=== PATIENT | female | born 1955 | race African-American/Black ===

== ENCOUNTER 2017-06-30 16:00 | Inpatient (IN) | payer MEDICARE, MEDICAID ==
[~2017-06-30] VITALS: Ht 157.5 cm; Wt 49.4 kg
[~2017-06-30 16:00] MED LIST: AMLO5TAB88 PO; ASPI-1159 PO; FISH PO; METO50TA5 PO; MULT-1146 PO; [UNRECOGNIZED DRUG - OTHER]
[2017-06-30] MEDS ORDERED: ONDANSETRON HCL 4MG/2ML VIAL IV PRN (17:00)
[2017-06-30] MEDS: DOCUSATE SODIUM 100MG CAPSULE PO SCH (17:00)
[2017-06-30] MEDS ORDERED: IPRATROPIUM/ALBUTEROL 0.5-3(2.5)MG/3ML NEB HHN PRN (17:00)
[2017-06-30 17:12] VITALS: BP 183/83
[2017-06-30 18:06] VITALS: BP 183/83
[2017-06-30 20:00] VITALS: BP 179/92
[2017-06-30] MEDS: POLYETHYLENE GLYCOL 3350 (17GM) 1 DOSE PACK PO SCH (21:18)
[2017-07-01] MEDS: HYDRALAZINE HCL 10MG TABLET PO PRN (00:27)
[2017-07-01] MEDS: DEXT 5%/0.45% NACL 1000ML 1,000 ML IV SCH ×2 (05:39→09:46)
[2017-07-01 08:00] VITALS: BP 119/50
[2017-07-01] MEDS ORDERED: ACETAMINOPHEN 650MG/20.3ML UDC PO PRN (08:00)
[2017-07-01] MEDS: PANTOPRAZOLE SODIUM 40 MG/VIAL IV SCH (09:45)
[2017-07-01] MEDS: CLOPIDOGREL 75MG TABLET PO SCH (09:45)
[2017-07-01] MEDS: DOCUSATE SODIUM 100MG CAPSULE PO SCH ×2 (09:45→16:52)
[2017-07-01] MEDS ORDERED: ASPIRIN 81MG EC TABLET PO SCH (13:15)
[2017-07-01 13:24] LABS: BASOPHILS % 0.4 % (0.0-2.0); EOSINOPHILS % 0.9 % (0.0-5.0); HEMATOCRIT. 37.2 % (36.0-48.0); LYMPHOCYTES % 26.3 % (20.0-50.0); MEAN CORPUSCULAR HEMOGLOBIN 30.3 pg (28.0-32.0); MEAN PLATELET VOLUME 7.5 fl (7.4-10.4); MONOCYTES % 7.4 % (2.0-8.0); PLATELET 283 x1000/uL (130-400); RED BLOOD CELL COUNT 4.28 mill/uL (4.2-5.4)
[2017-07-01 13:48] LABS: CARBON DIOXIDE 24 mEq/L (21-32); CHLORIDE 111 mEq/L (98-107); PREALBUMIN 26.5 mg/dL (20.0-40.0)
[2017-07-01] MEDS: ASPIRIN 81MG TABLET PO SCH (15:37)
[2017-07-01 20:00] VITALS: BP 156/71
[2017-07-01] MEDS: POLYETHYLENE GLYCOL 3350 (17GM) 1 DOSE PACK PO SCH (21:00)
[2017-07-01] MEDS: ATORVASTATIN CALCIUM 10MG TABLET PO SCH (21:35)
[2017-07-01] MEDS: METOPROLOL TARTRATE 25MG TABLET PO SCH (21:36)
[2017-07-01] MEDS: AMLODIPINE 5MG TABLET PO SCH (21:36)
[2017-07-02 01:12] LABS: CLARITY URINE CLOUDY (CLEAR); COLOR URINE YELLOW (YELLOW); GLUCOSE URINE NEGATIVE (NEGATIVE); KETONES URINE NEGATIVE (NEGATIVE); LEUKOCYTE ESTERASE URINE 3+ (NEGATIVE); NITRITE URINE NEGATIVE (NEGATIVE); OCCULT BLOOD URINE NEGATIVE (NEGATIVE); PH URINE 6.5 (4.5-8.0); PROTEIN URINE NEGATIVE (NEGATIVE); SPECIFIC GRAVITY URINE 1.014 (1.005-1.030)
[2017-07-02] MEDS: DEXT 5%/0.45% NACL 1000ML 1,000 ML IV SCH (03:49)
[2017-07-02 06:03] LABS: BASOPHILS % 0.2 % (0.0-2.0); EOSINOPHILS % 2.6 % (0.0-5.0); HEMATOCRIT. 34.8 % (36.0-48.0); MEAN CORPUSCULAR HEMOGLOBIN 30.2 pg (28.0-32.0); MEAN CORPUSCULAR VOLUME 87.9 fL (81.0-99.0); MEAN PLATELET VOLUME 7.8 fl (7.4-10.4); MONOCYTES % 8.1 % (2.0-8.0); NEUTROPHILS % 57.1 % (40.0-76.0); PLATELET 249 x1000/uL (130-400); RED BLOOD CELL COUNT 3.96 mill/uL (4.2-5.4)
[2017-07-02 07:12] LABS: CARBON DIOXIDE 25 mEq/L (21-32); CHLORIDE 110 mEq/L (98-107)
[2017-07-02] MEDS ORDERED: POTASSIUM CHLORIDE 20MEQ TABLET SR PO NR (07:45)
[2017-07-02 08:00] VITALS: BP 171/64
[2017-07-02] MEDS: CLOPIDOGREL 75MG TABLET PO SCH (08:10)
[2017-07-02] MEDS: PANTOPRAZOLE SODIUM 40 MG/VIAL IV SCH (08:10)
[2017-07-02] MEDS: DOCUSATE SODIUM 100MG CAPSULE PO SCH ×3 (08:11→17:16)
[2017-07-02] MEDS: METOPROLOL TARTRATE 25MG TABLET PO SCH ×2 (08:11→22:10)
[2017-07-02] MEDS: AMLODIPINE 5MG TABLET PO SCH ×2 (08:11→22:10)
[2017-07-02] MEDS: ASPIRIN 81MG TABLET PO SCH (08:11)
[2017-07-02] MEDS: NITROFURANTOIN 100MG M/M CAPSULE PO SCH ×2 (08:17→22:10)
[2017-07-02] MEDS: LOSARTAN POTASSIUM 25 MG TABLET PO SCH (11:19)
[2017-07-02] MEDS: HYDRALAZINE HCL 10MG TABLET PO PRN (11:27)
[2017-07-02] MEDS: LACTULOSE 20G/30ML UDC PO SCH ×2 (17:16→22:10)
[2017-07-02 20:00] VITALS: BP 154/73
[2017-07-02] MEDS: POLYETHYLENE GLYCOL 3350 (17GM) 1 DOSE PACK PO SCH ×3 (21:00→22:11)
[2017-07-02] MEDS: ATORVASTATIN CALCIUM 10MG TABLET PO SCH (22:10)
[2017-07-03 07:55] VITALS: BP 145/69
[2017-07-03 08:00] LABS: BASOPHILS % 0.2 % (0.0-2.0); EOSINOPHILS % 1.1 % (0.0-5.0); HEMATOCRIT. 36.9 % (36.0-48.0); HEMOGLOBIN. 12.6 g/dL (12.0-16.0); LYMPHOCYTES % 20.6 % (20.0-50.0); MEAN CORPUSCULAR HEMOGLOBIN 29.9 pg (28.0-32.0); MEAN CORPUSCULAR VOLUME 87.9 fL (81.0-99.0); MEAN PLATELET VOLUME 7.6 fl (7.4-10.4); MONOCYTES % 6.2 % (2.0-8.0); NEUTROPHILS % 71.9 % (40.0-76.0); PLATELET 278 x1000/uL (130-400); RED CELL DISTRIBUTION WIDTH 14.4 % (11.6-14.6)
[2017-07-03 08:43] LABS: CARBON DIOXIDE 24 mEq/L (21-32); CHLORIDE 110 mEq/L (98-107); HDL CHOLESTEROL 41 mg/dL (40-59); LDL CHOLESTEROL 87 mg/dL (5-100); PHOSPHORUS 3.1 mg/dL (2.5-4.9); TOTAL IRON BINDING CAPACITY 310 ug/dL (250-450)
[2017-07-03 08:44] LABS: FERRITIN 264 ng/mL (10-291)
[2017-07-03 08:45] LABS: VITAMIN B12 SERUM 1553 pg/mL (211-911)
[2017-07-03 08:58] LABS: FOLIC ACID (FOLATE) SERUM > 20.00 ng/mL (>5.38)
[2017-07-03] MEDS: LACTULOSE 20G/30ML UDC PO SCH (09:00)
[2017-07-03] MEDS: NITROFURANTOIN 100MG M/M CAPSULE PO SCH ×2 (10:24→20:22)
[2017-07-03] MEDS: LOSARTAN POTASSIUM 25 MG TABLET PO SCH (10:24)
[2017-07-03] MEDS: DOCUSATE SODIUM 100MG CAPSULE PO SCH ×4 (10:24→18:10)
[2017-07-03] MEDS: METOPROLOL TARTRATE 25MG TABLET PO SCH ×2 (10:24→20:21)
[2017-07-03] MEDS: FAMOTIDINE 20MG TABLET PO SCH ×2 (10:25→18:10)
[2017-07-03] MEDS: CLOPIDOGREL 75MG TABLET PO SCH (10:25)
[2017-07-03] MEDS: ASPIRIN 81MG TABLET PO SCH (10:25)
[2017-07-03] MEDS: AMLODIPINE 5MG TABLET PO SCH ×2 (10:25→20:21)
[2017-07-03] MEDS: POLYETHYLENE GLYCOL 3350 (17GM) 1 DOSE PACK PO SCH ×2 (20:20→20:23)
[2017-07-03] MEDS: ATORVASTATIN CALCIUM 10MG TABLET PO SCH (20:21)
[2017-07-03 20:51] VITALS: BP 170/79
[2017-07-03 21:40] VITALS: BP 168/79
[2017-07-04 00:10] VITALS: BP 154/73
[2017-07-04 07:02] LABS: BASOPHILS % 0.4 % (0.0-2.0); EOSINOPHILS % 2.2 % (0.0-5.0); HEMATOCRIT. 36.4 % (36.0-48.0); HEMOGLOBIN. 12.5 g/dL (12.0-16.0); LYMPHOCYTES % 29.9 % (20.0-50.0); MEAN CORPUSCULAR HEMOGLOBIN 30.3 pg (28.0-32.0); MEAN CORPUSCULAR VOLUME 88.2 fL (81.0-99.0); MEAN PLATELET VOLUME 7.4 fl (7.4-10.4); MONOCYTES % 6.9 % (2.0-8.0); NEUTROPHILS % 60.6 % (40.0-76.0); PLATELET 266 x1000/uL (130-400); RED BLOOD CELL COUNT 4.12 mill/uL (4.2-5.4); RED CELL DISTRIBUTION WIDTH 14.1 % (11.6-14.6)
[2017-07-04 07:43] VITALS: BP 161/72
[2017-07-04 07:54] LABS: CARBON DIOXIDE 24 mEq/L (21-32); CHLORIDE 111 mEq/L (98-107)
[2017-07-04] MEDS ORDERED: POTASSIUM CHLORIDE 20MEQ TABLET SR PO SCH (09:15)
[2017-07-04] MEDS: AMLODIPINE 5MG TABLET PO SCH ×2 (09:28→20:47)
[2017-07-04] MEDS: NITROFURANTOIN 100MG M/M CAPSULE PO SCH ×2 (09:29→20:44)
[2017-07-04] MEDS: METOPROLOL TARTRATE 25MG TABLET PO SCH ×2 (09:29→20:46)
[2017-07-04] MEDS: FAMOTIDINE 20MG TABLET PO SCH ×2 (09:30→16:38)
[2017-07-04] MEDS: ASPIRIN 81MG TABLET PO SCH (09:30)
[2017-07-04] MEDS: CLOPIDOGREL 75MG TABLET PO SCH (09:30)
[2017-07-04] MEDS: LOSARTAN POTASSIUM 25 MG TABLET PO SCH (09:30)
[2017-07-04] MEDS: DOCUSATE SODIUM 100MG CAPSULE PO SCH ×4 (09:36→16:38)
[2017-07-04] MEDS ORDERED: POTASSIUM CHLORIDE 20MEQ/PACKET PO SCH (09:45)
[2017-07-04 20:00] VITALS: BP 165/82
[2017-07-04] MEDS: ATORVASTATIN CALCIUM 10MG TABLET PO SCH (20:44)
[2017-07-04] MEDS: POLYETHYLENE GLYCOL 3350 (17GM) 1 DOSE PACK PO SCH (20:46)
[2017-07-05 08:00] VITALS: BP 171/76
[2017-07-05] MEDS: NITROFURANTOIN 100MG M/M CAPSULE PO SCH ×2 (08:33→21:01)
[2017-07-05] MEDS: FAMOTIDINE 20MG TABLET PO SCH ×2 (08:34→17:04)
[2017-07-05] MEDS: LOSARTAN POTASSIUM 25 MG TABLET PO SCH (08:34)
[2017-07-05] MEDS: CLOPIDOGREL 75MG TABLET PO SCH (08:34)
[2017-07-05] MEDS: DOCUSATE SODIUM 100MG CAPSULE PO SCH ×4 (08:34→17:04)
[2017-07-05] MEDS: AMLODIPINE 5MG TABLET PO SCH ×2 (08:34→21:02)
[2017-07-05] MEDS: ASPIRIN 81MG TABLET PO SCH (08:34)
[2017-07-05] MEDS: METOPROLOL TARTRATE 25MG TABLET PO SCH ×2 (08:37→21:01)
[2017-07-05 19:00] VITALS: BP 186/89
[2017-07-05] MEDS: ATORVASTATIN CALCIUM 10MG TABLET PO SCH (21:01)
[2017-07-05] MEDS: POLYETHYLENE GLYCOL 3350 (17GM) 1 DOSE PACK PO SCH (21:02)
[2017-07-06 07:34] LABS: CARBON DIOXIDE 26 mEq/L (21-32); CHLORIDE 113 mEq/L (98-107)
[2017-07-06 08:00] VITALS: BP 150/74
[2017-07-06] MEDS: DOCUSATE SODIUM 100MG CAPSULE PO SCH ×3 (09:00→20:39)
[2017-07-06] MEDS: METOPROLOL TARTRATE 25MG TABLET PO SCH ×2 (09:00→20:20)
[2017-07-06] MEDS: ASPIRIN 81MG TABLET PO SCH (09:51)
[2017-07-06] MEDS: FAMOTIDINE 20MG TABLET PO SCH ×2 (09:51→16:23)
[2017-07-06] MEDS: CLOPIDOGREL 75MG TABLET PO SCH (09:51)
[2017-07-06] MEDS: NITROFURANTOIN 100MG M/M CAPSULE PO SCH ×2 (09:51→20:40)
[2017-07-06] MEDS: LOSARTAN POTASSIUM 25 MG TABLET PO SCH (09:52)
[2017-07-06] MEDS: AMLODIPINE 5MG TABLET PO SCH ×2 (09:52→20:40)
[2017-07-06] MEDS ORDERED: LOSARTAN POTASSIUM 25 MG TABLET PO SCH (13:30)
[2017-07-06] MEDS: BISACODYL 10MG SUPP PR PRN (16:23)
[2017-07-06] MEDS: CLONIDINE 0.1MG TABLET PO SCH ×2 (16:29→22:09)
[2017-07-06 20:00] VITALS: BP 101/61
[2017-07-06] MEDS: ATORVASTATIN CALCIUM 10MG TABLET PO SCH (20:19)
[2017-07-06] MEDS: POLYETHYLENE GLYCOL 3350 (17GM) 1 DOSE PACK PO SCH (20:20)
[2017-07-06] MEDS ORDERED: LOSARTAN POTASSIUM 50 MG TABLET PO SCH (21:00)
[2017-07-07] MEDS: CLONIDINE 0.1MG TABLET PO SCH ×3 (05:16→21:32)
[2017-07-07 07:56] VITALS: BP 120/50
[2017-07-07] MEDS: NITROFURANTOIN 100MG M/M CAPSULE PO SCH ×2 (09:28→21:27)
[2017-07-07] MEDS: AMLODIPINE 5MG TABLET PO SCH ×2 (09:28→21:28)
[2017-07-07] MEDS: FAMOTIDINE 20MG TABLET PO SCH ×2 (09:28→18:03)
[2017-07-07] MEDS: METOPROLOL TARTRATE 25MG TABLET PO SCH ×2 (09:28→21:28)
[2017-07-07] MEDS: DOCUSATE SODIUM 100MG CAPSULE PO SCH ×2 (09:29→21:27)
[2017-07-07] MEDS: ASPIRIN 81MG TABLET PO SCH (09:29)
[2017-07-07] MEDS: CLOPIDOGREL 75MG TABLET PO SCH (09:29)
[2017-07-07] MEDS ORDERED: SODIUM CHLORIDE 0.45% 1,000 ML IV ONE (09:45)
[2017-07-07 13:00] VITALS: BP 111/65
[2017-07-07 13:07] LABS: 25-HYDROXY VITAMIN D3 51 ng/mL (.)
[2017-07-07 20:00] VITALS: BP 148/53
[2017-07-07] MEDS: ATORVASTATIN CALCIUM 10MG TABLET PO SCH (21:27)
[2017-07-07] MEDS: POLYETHYLENE GLYCOL 3350 (17GM) 1 DOSE PACK PO SCH (21:27)
[2017-07-08] MEDS: CLONIDINE 0.1MG TABLET PO SCH ×3 (05:27→22:00)
[2017-07-08 08:00] VITALS: BP 115/54
[2017-07-08 08:08] LABS: BASOPHILS % 0.2 % (0.0-2.0); EOSINOPHILS % 4.2 % (0.0-5.0); HEMATOCRIT. 30.3 % (36.0-48.0); HEMOGLOBIN. 10.5 g/dL (12.0-16.0); LYMPHOCYTES % 20.1 % (20.0-50.0); MEAN CORPUSCULAR HEMOGLOBIN 30.6 pg (28.0-32.0); MEAN CORPUSCULAR VOLUME 87.9 fL (81.0-99.0); MEAN PLATELET VOLUME 7.9 fl (7.4-10.4); MONOCYTES % 8.5 % (2.0-8.0); PLATELET 208 x1000/uL (130-400); RED BLOOD CELL COUNT 3.44 mill/uL (4.2-5.4); RED CELL DISTRIBUTION WIDTH 14.6 % (11.6-14.6)
[2017-07-08] MEDS: AMLODIPINE 5MG TABLET PO SCH ×2 (09:00→20:56)
[2017-07-08] MEDS: METOPROLOL TARTRATE 25MG TABLET PO SCH ×2 (09:00→20:56)
[2017-07-08] MEDS: ASPIRIN 81MG TABLET PO SCH (10:38)
[2017-07-08] MEDS: DOCUSATE SODIUM 100MG CAPSULE PO SCH ×2 (10:38→20:55)
[2017-07-08] MEDS: CLOPIDOGREL 75MG TABLET PO SCH (10:38)
[2017-07-08] MEDS: NITROFURANTOIN 100MG M/M CAPSULE PO SCH ×2 (10:38→20:55)
[2017-07-08] MEDS: FAMOTIDINE 20MG TABLET PO SCH ×2 (10:38→17:56)
[2017-07-08 12:57] VITALS: BP 152/81
[2017-07-08 20:00] VITALS: BP 107/58
[2017-07-08] MEDS: ATORVASTATIN CALCIUM 10MG TABLET PO SCH (20:55)
[2017-07-08] MEDS: POLYETHYLENE GLYCOL 3350 (17GM) 1 DOSE PACK PO SCH (20:55)
[2017-07-09] MEDS: CLONIDINE 0.1MG TABLET PO SCH ×3 (05:48→22:00)
[2017-07-09 05:54] LABS: BASOPHILS % 0.4 % (0.0-2.0); EOSINOPHILS % 5.2 % (0.0-5.0); HEMOGLOBIN. 10.2 g/dL (12.0-16.0); LYMPHOCYTES % 30.2 % (20.0-50.0); MEAN CORPUSCULAR HEMOGLOBIN 30.3 pg (28.0-32.0); MEAN CORPUSCULAR VOLUME 88.8 fL (81.0-99.0); MONOCYTES % 9.9 % (2.0-8.0); NEUTROPHILS % 54.3 % (40.0-76.0); PLATELET 217 x1000/uL (130-400); RED BLOOD CELL COUNT 3.38 mill/uL (4.2-5.4); RED CELL DISTRIBUTION WIDTH 14.1 % (11.6-14.6)
[2017-07-09 06:13] LABS: CARBON DIOXIDE 24 mEq/L (21-32); CHLORIDE 116 mEq/L (98-107)
[2017-07-09 08:00] VITALS: BP 121/51
[2017-07-09] MEDS: NITROFURANTOIN 100MG M/M CAPSULE PO SCH (09:00)
[2017-07-09] MEDS: BISACODYL 10MG SUPP PR PRN (10:06)
[2017-07-09] MEDS: DOCUSATE SODIUM 100MG CAPSULE PO SCH ×2 (10:06→21:04)
[2017-07-09] MEDS: ASPIRIN 81MG TABLET PO SCH (10:06)
[2017-07-09] MEDS: AMLODIPINE 5MG TABLET PO SCH ×2 (10:08→21:00)
[2017-07-09] MEDS: CLOPIDOGREL 75MG TABLET PO SCH (10:08)
[2017-07-09] MEDS: METOPROLOL TARTRATE 25MG TABLET PO SCH ×2 (10:11→21:05)
[2017-07-09] MEDS: FAMOTIDINE 20MG TABLET PO SCH ×2 (10:12→17:00)
[2017-07-09] MEDS ORDERED: POTASSIUM CHLORIDE 20MEQ TABLET SR PO NR (11:45)
[2017-07-09 20:00] VITALS: BP 135/87
[2017-07-09] MEDS: ATORVASTATIN CALCIUM 10MG TABLET PO SCH (21:05)
[2017-07-09] MEDS: POLYETHYLENE GLYCOL 3350 (17GM) 1 DOSE PACK PO SCH (21:06)
[2017-07-10] MEDS: CLONIDINE 0.1MG TABLET PO SCH ×3 (06:00→22:00)
[2017-07-10 08:00] VITALS: BP 146/70
[2017-07-10] MEDS: METOPROLOL TARTRATE 25MG TABLET PO SCH ×2 (09:21→21:00)
[2017-07-10] MEDS: AMLODIPINE 5MG TABLET PO SCH ×2 (09:21→21:00)
[2017-07-10] MEDS: FAMOTIDINE 20MG TABLET PO SCH ×2 (09:21→17:09)
[2017-07-10] MEDS: ASPIRIN 81MG TABLET PO SCH (09:21)
[2017-07-10] MEDS: DOCUSATE SODIUM 100MG CAPSULE PO SCH ×2 (09:21→21:00)
[2017-07-10] MEDS: CLOPIDOGREL 75MG TABLET PO SCH (09:21)
[2017-07-10] MEDS ORDERED: POTASSIUM CHLORIDE 20MEQ TABLET SR PO NR (11:00)
[2017-07-10 20:00] VITALS: BP 125/57
[2017-07-10] MEDS: ATORVASTATIN CALCIUM 10MG TABLET PO SCH (21:00)
[2017-07-10] MEDS: POLYETHYLENE GLYCOL 3350 (17GM) 1 DOSE PACK PO SCH (21:00)
[2017-07-11] MEDS: CLONIDINE 0.1MG TABLET PO SCH ×3 (06:00→21:08)
[2017-07-11 07:42] LABS: CHLORIDE 117 mEq/L (98-107)
[2017-07-11 07:56] LABS: CARBON DIOXIDE 23 mEq/L (21-32)
[2017-07-11 08:00] VITALS: BP 141/42
[2017-07-11] MEDS: FAMOTIDINE 20MG TABLET PO SCH ×2 (09:32→17:35)
[2017-07-11] MEDS: METOPROLOL TARTRATE 25MG TABLET PO SCH ×2 (09:32→21:09)
[2017-07-11] MEDS: DOCUSATE SODIUM 100MG CAPSULE PO SCH ×2 (09:33→21:09)
[2017-07-11] MEDS: AMLODIPINE 5MG TABLET PO SCH ×2 (09:33→21:09)
[2017-07-11] MEDS: CLOPIDOGREL 75MG TABLET PO SCH (09:33)
[2017-07-11] MEDS: POTASSIUM CHLORIDE 10MEQ TABLET SR PO SCH (09:33)
[2017-07-11] MEDS: ASPIRIN 81MG TABLET PO SCH (09:33)
[2017-07-11 20:00] VITALS: BP 147/57
[2017-07-11] MEDS: ATORVASTATIN CALCIUM 10MG TABLET PO SCH (21:08)
[2017-07-11] MEDS: POLYETHYLENE GLYCOL 3350 (17GM) 1 DOSE PACK PO SCH (21:08)
[2017-07-12] MEDS: CLONIDINE 0.1MG TABLET PO SCH ×3 (05:10→22:29)
[2017-07-12 07:45] VITALS: BP 142/60
[2017-07-12] MEDS: POTASSIUM CHLORIDE 10MEQ TABLET SR PO SCH (09:42)
[2017-07-12] MEDS: CLOPIDOGREL 75MG TABLET PO SCH (09:42)
[2017-07-12] MEDS: FAMOTIDINE 20MG TABLET PO SCH ×2 (09:42→16:36)
[2017-07-12] MEDS: AMLODIPINE 5MG TABLET PO SCH ×2 (09:42→21:00)
[2017-07-12] MEDS: DOCUSATE SODIUM 100MG CAPSULE PO SCH ×2 (09:42→21:00)
[2017-07-12] MEDS: ASPIRIN 81MG TABLET PO SCH (09:42)
[2017-07-12] MEDS: METOPROLOL TARTRATE 25MG TABLET PO SCH ×2 (09:43→22:35)
[2017-07-12 19:00] VITALS: BP 142/67
[2017-07-12] MEDS: ATORVASTATIN CALCIUM 10MG TABLET PO SCH (22:30)
[2017-07-12] MEDS: POLYETHYLENE GLYCOL 3350 (17GM) 1 DOSE PACK PO SCH (22:34)
[2017-07-13] MEDS: CLONIDINE 0.1MG TABLET PO SCH ×3 (05:52→22:00)
[2017-07-13 07:50] LABS: BASOPHILS % 0.3 % (0.0-2.0); CARBON DIOXIDE 28 mEq/L (21-32); CHLORIDE 116 mEq/L (98-107); EOSINOPHILS % 1.9 % (0.0-5.0); HEMATOCRIT. 32.1 % (36.0-48.0); HEMOGLOBIN. 11.1 g/dL (12.0-16.0); LYMPHOCYTES % 39.7 % (20.0-50.0); MEAN CORPUSCULAR HEMOGLOBIN 30.5 pg (28.0-32.0); MEAN CORPUSCULAR VOLUME 88.4 fL (81.0-99.0); MEAN PLATELET VOLUME 8.6 fl (7.4-10.4); MONOCYTES % 7.3 % (2.0-8.0); NEUTROPHILS % 50.8 % (40.0-76.0); PLATELET 220 x1000/uL (130-400); RED BLOOD CELL COUNT 3.62 mill/uL (4.2-5.4); RED CELL DISTRIBUTION WIDTH 14.3 % (11.6-14.6)
[2017-07-13 08:00] VITALS: BP_SYST 120; BP_SYST 132; BP_DIAS 59; BP_DIAS 83
[2017-07-13] MEDS: METOPROLOL TARTRATE 25MG TABLET PO SCH ×2 (09:00→22:16)
[2017-07-13] MEDS: DOCUSATE SODIUM 100MG CAPSULE PO SCH ×2 (09:05→22:17)
[2017-07-13] MEDS: POTASSIUM CHLORIDE 10MEQ TABLET SR PO SCH (09:05)
[2017-07-13] MEDS: CLOPIDOGREL 75MG TABLET PO SCH (09:05)
[2017-07-13] MEDS: FAMOTIDINE 20MG TABLET PO SCH ×2 (09:05→17:59)
[2017-07-13] MEDS: ASPIRIN 81MG TABLET PO SCH (09:05)
[2017-07-13] MEDS: AMLODIPINE 5MG TABLET PO SCH ×2 (09:15→22:17)
[2017-07-13 20:00] VITALS: BP 142/65
[2017-07-13] MEDS: ATORVASTATIN CALCIUM 10MG TABLET PO SCH (22:17)
[2017-07-13] MEDS: POLYETHYLENE GLYCOL 3350 (17GM) 1 DOSE PACK PO SCH (22:18)
[2017-07-14] MEDS: CLONIDINE 0.1MG TABLET PO SCH ×3 (06:08→22:00)
[2017-07-14 08:00] VITALS: BP 157/64
[2017-07-14] MEDS ORDERED: SULFAMETHOXAZOLE/TRIMETHOPRIM 800/160MG TABLET PO SCH (09:00)
[2017-07-14] MEDS: DOCUSATE SODIUM 100MG CAPSULE PO SCH ×2 (10:58→22:37)
[2017-07-14] MEDS: POTASSIUM CHLORIDE 10MEQ TABLET SR PO SCH (10:58)
[2017-07-14] MEDS: AMLODIPINE 5MG TABLET PO SCH ×2 (10:59→22:40)
[2017-07-14] MEDS: METOPROLOL TARTRATE 25MG TABLET PO SCH ×2 (11:01→22:36)
[2017-07-14] MEDS: ASPIRIN 81MG TABLET PO SCH (11:01)
[2017-07-14] MEDS: CLOPIDOGREL 75MG TABLET PO SCH (11:01)
[2017-07-14] MEDS: FAMOTIDINE 20MG TABLET PO SCH ×2 (11:01→18:15)
[2017-07-14] MEDS: PHENAZOPYRIDINE HCL 100MG TABLET PO SCH ×3 (11:02→18:15)
[2017-07-14 12:35] VITALS: BP 120/65
[2017-07-14 20:00] VITALS: BP 126/68
[2017-07-14] MEDS: POLYETHYLENE GLYCOL 3350 (17GM) 1 DOSE PACK PO SCH (22:36)
[2017-07-14] MEDS: ATORVASTATIN CALCIUM 10MG TABLET PO SCH (22:36)
[2017-07-15] MEDS: CLONIDINE 0.1MG TABLET PO SCH ×3 (06:10→22:00)
[2017-07-15 07:19] LABS: CARBON DIOXIDE 27 mEq/L (21-32); CHLORIDE 116 mEq/L (98-107)
[2017-07-15 08:00] VITALS: BP 132/59
[2017-07-15] MEDS: METOPROLOL TARTRATE 25MG TABLET PO SCH ×2 (09:00→21:12)
[2017-07-15] MEDS: CLOPIDOGREL 75MG TABLET PO SCH (09:34)
[2017-07-15] MEDS: PHENAZOPYRIDINE HCL 100MG TABLET PO SCH ×3 (09:34→17:15)
[2017-07-15] MEDS: ASPIRIN 81MG TABLET PO SCH (09:34)
[2017-07-15] MEDS: FAMOTIDINE 20MG TABLET PO SCH ×2 (09:35→17:15)
[2017-07-15] MEDS: DOCUSATE SODIUM 100MG CAPSULE PO SCH ×2 (09:35→21:11)
[2017-07-15] MEDS: POTASSIUM CHLORIDE 10MEQ TABLET SR PO SCH (09:35)
[2017-07-15] MEDS: AMLODIPINE 5MG TABLET PO SCH ×2 (09:35→21:11)
[2017-07-15] MEDS: DEXTROSE 5% WATER 1,000 ML IV SCH (12:16)
[2017-07-15 20:00] VITALS: BP 109/57
[2017-07-15] MEDS: POLYETHYLENE GLYCOL 3350 (17GM) 1 DOSE PACK PO SCH (21:00)
[2017-07-15] MEDS: ATORVASTATIN CALCIUM 10MG TABLET PO SCH (21:11)
[2017-07-16] MEDS: DEXTROSE 5% WATER 1,000 ML IV SCH ×2 (00:52→12:17)
[2017-07-16] MEDS: CLONIDINE 0.1MG TABLET PO SCH ×3 (05:09→23:25)
[2017-07-16 06:31] LABS: HEMATOCRIT. 32.6 % (36.0-48.0); MEAN CORPUSCULAR HEMOGLOBIN 30.1 pg (28.0-32.0); MEAN CORPUSCULAR VOLUME 89.1 fL (81.0-99.0); RED BLOOD CELL COUNT 3.66 mill/uL (4.2-5.4); RED CELL DISTRIBUTION WIDTH 14.5 % (11.6-14.6)
[2017-07-16 08:28] VITALS: BP 124/46
[2017-07-16] MEDS: METOPROLOL TARTRATE 25MG TABLET PO SCH ×3 (09:00→23:28)
[2017-07-16] MEDS: AMLODIPINE 5MG TABLET PO SCH ×2 (09:00→21:26)
[2017-07-16] MEDS: ASPIRIN 81MG TABLET PO SCH (09:34)
[2017-07-16] MEDS: POTASSIUM CHLORIDE 10MEQ TABLET SR PO SCH (09:34)
[2017-07-16] MEDS: CLOPIDOGREL 75MG TABLET PO SCH (09:34)
[2017-07-16] MEDS: DOCUSATE SODIUM 100MG CAPSULE PO SCH ×2 (09:34→21:24)
[2017-07-16] MEDS: PHENAZOPYRIDINE HCL 100MG TABLET PO SCH ×3 (09:35→17:23)
[2017-07-16] MEDS: FAMOTIDINE 20MG TABLET PO SCH ×2 (09:35→17:23)
[2017-07-16 14:11] LABS: PLATELET 222 x1000/uL (130-400)
[2017-07-16 14:14] LABS: PLATELET ESTIMATE NORMAL
[2017-07-16 14:57] LABS: CHLORIDE 106 mEq/L (98-107)
[2017-07-16 15:04] LABS: CARBON DIOXIDE 26 mEq/L (21-32)
[2017-07-16 20:00] VITALS: BP 119/53
[2017-07-16] MEDS: ATORVASTATIN CALCIUM 10MG TABLET PO SCH (21:24)
[2017-07-16] MEDS: POLYETHYLENE GLYCOL 3350 (17GM) 1 DOSE PACK PO SCH (21:26)
[2017-07-17] MEDS: CLONIDINE 0.1MG TABLET PO SCH ×3 (06:41→22:00)
[2017-07-17 08:00] VITALS: BP 116/65
[2017-07-17] MEDS: CLOPIDOGREL 75MG TABLET PO SCH (09:36)
[2017-07-17] MEDS: ASPIRIN 81MG TABLET PO SCH (09:36)
[2017-07-17] MEDS: DOCUSATE SODIUM 100MG CAPSULE PO SCH ×2 (09:36→21:48)
[2017-07-17] MEDS: POTASSIUM CHLORIDE 10MEQ TABLET SR PO SCH (09:36)
[2017-07-17] MEDS: FAMOTIDINE 20MG TABLET PO SCH ×2 (09:36→18:23)
[2017-07-17] MEDS: METOPROLOL TARTRATE 25MG TABLET PO SCH ×2 (09:36→21:49)
[2017-07-17] MEDS: AMLODIPINE 5MG TABLET PO SCH ×2 (09:37→21:49)
[2017-07-17 13:30] VITALS: BP 134/64
[2017-07-17 20:00] VITALS: BP 142/56
[2017-07-17] MEDS: POLYETHYLENE GLYCOL 3350 (17GM) 1 DOSE PACK PO SCH (21:00)
[2017-07-17] MEDS: ATORVASTATIN CALCIUM 10MG TABLET PO SCH (21:48)
[2017-07-18] MEDS: CLONIDINE 0.1MG TABLET PO SCH ×3 (06:00→21:57)
[2017-07-18 07:48] LABS: BASOPHILS % 0.3 % (0.0-2.0); EOSINOPHILS % 2.1 % (0.0-5.0); HEMOGLOBIN. 10.9 g/dL (12.0-16.0); LYMPHOCYTES % 32.8 % (20.0-50.0); MEAN CORPUSCULAR HEMOGLOBIN 30.3 pg (28.0-32.0); MEAN CORPUSCULAR VOLUME 86.2 fL (81.0-99.0); MEAN PLATELET VOLUME 8.1 fl (7.4-10.4); MONOCYTES % 7.5 % (2.0-8.0); NEUTROPHILS % 57.3 % (40.0-76.0); PLATELET 250 x1000/uL (130-400)
[2017-07-18 08:00] VITALS: BP 131/68
[2017-07-18 08:13] LABS: CARBON DIOXIDE 24 mEq/L (21-32); CHLORIDE 107 mEq/L (98-107)
[2017-07-18] MEDS: ASPIRIN 81MG TABLET PO SCH (09:11)
[2017-07-18] MEDS: AMLODIPINE 5MG TABLET PO SCH ×2 (09:11→21:55)
[2017-07-18] MEDS: CLOPIDOGREL 75MG TABLET PO SCH (09:11)
[2017-07-18] MEDS: DOCUSATE SODIUM 100MG CAPSULE PO SCH ×2 (09:11→21:56)
[2017-07-18] MEDS: POTASSIUM CHLORIDE 10MEQ TABLET SR PO SCH (09:11)
[2017-07-18] MEDS: FAMOTIDINE 20MG TABLET PO SCH ×2 (09:12→17:51)
[2017-07-18] MEDS: METOPROLOL TARTRATE 25MG TABLET PO SCH ×2 (09:12→21:56)
[2017-07-18 19:49] VITALS: BP 135/63
[2017-07-18] MEDS: POLYETHYLENE GLYCOL 3350 (17GM) 1 DOSE PACK PO SCH (21:00)
[2017-07-18] MEDS: ATORVASTATIN CALCIUM 10MG TABLET PO SCH (21:56)
[2017-07-19] MEDS: CLONIDINE 0.1MG TABLET PO SCH ×3 (06:00→22:00)
[2017-07-19 08:00] VITALS: BP 146/81
[2017-07-19] MEDS: ASPIRIN 81MG TABLET PO SCH (08:54)
[2017-07-19] MEDS: AMLODIPINE 5MG TABLET PO SCH ×2 (08:54→22:31)
[2017-07-19] MEDS: POTASSIUM CHLORIDE 10MEQ TABLET SR PO SCH (08:54)
[2017-07-19] MEDS: CLOPIDOGREL 75MG TABLET PO SCH (08:54)
[2017-07-19] MEDS: FAMOTIDINE 20MG TABLET PO SCH ×2 (08:54→17:13)
[2017-07-19] MEDS: DOCUSATE SODIUM 100MG CAPSULE PO SCH ×2 (08:54→22:30)
[2017-07-19] MEDS: METOPROLOL TARTRATE 25MG TABLET PO SCH ×2 (08:54→22:31)
[2017-07-19] MEDS: LACTULOSE 20G/30ML UDC PO SCH ×3 (15:43→23:15)
[2017-07-19 16:17] LABS: CARBON DIOXIDE 25 mEq/L (21-32); CHLORIDE 109 mEq/L (98-107)
[2017-07-19 20:00] VITALS: BP 130/69
[2017-07-19] MEDS: POLYETHYLENE GLYCOL 3350 (17GM) 1 DOSE PACK PO SCH (21:00)
[2017-07-19] MEDS: ATORVASTATIN CALCIUM 10MG TABLET PO SCH (22:35)
[2017-07-20] MEDS: CLONIDINE 0.1MG TABLET PO SCH ×3 (06:00→22:00)
[2017-07-20 07:00] VITALS: BP 131/69
[2017-07-20 07:29] LABS: CARBON DIOXIDE 26 mEq/L (21-32); CHLORIDE 111 mEq/L (98-107)
[2017-07-20 07:59] LABS: BASOPHILS % 0.3 % (0.0-2.0); EOSINOPHILS % 1.6 % (0.0-5.0); HEMATOCRIT. 32.5 % (36.0-48.0); HEMOGLOBIN. 11.1 g/dL (12.0-16.0); LYMPHOCYTES % 41.8 % (20.0-50.0); MEAN CORPUSCULAR HEMOGLOBIN 30.2 pg (28.0-32.0); MEAN PLATELET VOLUME 8.6 fl (7.4-10.4); NEUTROPHILS % 46.3 % (40.0-76.0); PLATELET 224 x1000/uL (130-400); RED BLOOD CELL COUNT 3.69 mill/uL (4.2-5.4); RED CELL DISTRIBUTION WIDTH 14.4 % (11.6-14.6)
[2017-07-20] MEDS: FAMOTIDINE 20MG TABLET PO SCH ×2 (08:44→16:59)
[2017-07-20] MEDS: DOCUSATE SODIUM 100MG CAPSULE PO SCH ×2 (08:44→22:43)
[2017-07-20] MEDS: POTASSIUM CHLORIDE 10MEQ TABLET SR PO SCH (08:45)
[2017-07-20] MEDS: METOPROLOL TARTRATE 25MG TABLET PO SCH ×3 (08:45→22:45)
[2017-07-20] MEDS: AMLODIPINE 5MG TABLET PO SCH ×2 (08:45→22:44)
[2017-07-20] MEDS: CLOPIDOGREL 75MG TABLET PO SCH (08:47)
[2017-07-20] MEDS: ASPIRIN 81MG TABLET PO SCH (08:47)
[2017-07-20 16:30] VITALS: BP 145/63
[2017-07-20 20:00] VITALS: BP 155/70
[2017-07-20] MEDS: POLYETHYLENE GLYCOL 3350 (17GM) 1 DOSE PACK PO SCH (22:43)
[2017-07-20] MEDS: ATORVASTATIN CALCIUM 10MG TABLET PO SCH (22:44)
[2017-07-21] MEDS: CLONIDINE 0.1MG TABLET PO SCH ×3 (06:00→22:00)
[2017-07-21 08:00] VITALS: BP 127/59
[2017-07-21] MEDS: DOCUSATE SODIUM 100MG CAPSULE PO SCH ×2 (08:55→22:17)
[2017-07-21] MEDS: ASPIRIN 81MG TABLET PO SCH (08:56)
[2017-07-21] MEDS: METOPROLOL TARTRATE 25MG TABLET PO SCH ×2 (08:56→22:15)
[2017-07-21] MEDS: AMLODIPINE 5MG TABLET PO SCH ×2 (08:56→22:16)
[2017-07-21] MEDS: POTASSIUM CHLORIDE 10MEQ TABLET SR PO SCH (08:56)
[2017-07-21] MEDS: CLOPIDOGREL 75MG TABLET PO SCH (08:56)
[2017-07-21] MEDS: FAMOTIDINE 20MG TABLET PO SCH ×2 (08:56→16:49)
[2017-07-21 20:00] VITALS: BP 150/61
[2017-07-21] MEDS: ATORVASTATIN CALCIUM 10MG TABLET PO SCH (22:14)
[2017-07-21] MEDS: POLYETHYLENE GLYCOL 3350 (17GM) 1 DOSE PACK PO SCH (22:14)
[2017-07-22] MEDS: CLONIDINE 0.1MG TABLET PO SCH ×3 (05:37→21:55)
[2017-07-22 07:12] LABS: BASOPHILS % 0.2 % (0.0-2.0); HEMATOCRIT. 32.6 % (36.0-48.0); HEMOGLOBIN. 11.4 g/dL (12.0-16.0); LYMPHOCYTES % 38.1 % (20.0-50.0); MEAN CORPUSCULAR HEMOGLOBIN 30.6 pg (28.0-32.0); MEAN CORPUSCULAR VOLUME 87.8 fL (81.0-99.0); MEAN PLATELET VOLUME 8.2 fl (7.4-10.4); MONOCYTES % 7.7 % (2.0-8.0); PLATELET 253 x1000/uL (130-400); RED BLOOD CELL COUNT 3.71 mill/uL (4.2-5.4); RED CELL DISTRIBUTION WIDTH 14.3 % (11.6-14.6)
[2017-07-22 08:00] VITALS: BP 150/64
[2017-07-22 08:30] LABS: CARBON DIOXIDE 28 mEq/L (21-32); CHLORIDE 112 mEq/L (98-107)
[2017-07-22] MEDS: CLOPIDOGREL 75MG TABLET PO SCH (09:03)
[2017-07-22] MEDS: DOCUSATE SODIUM 100MG CAPSULE PO SCH ×2 (09:03→20:56)
[2017-07-22] MEDS: ASPIRIN 81MG TABLET PO SCH (09:03)
[2017-07-22] MEDS: POTASSIUM CHLORIDE 10MEQ TABLET SR PO SCH (09:04)
[2017-07-22] MEDS: AMLODIPINE 5MG TABLET PO SCH ×2 (09:04→20:57)
[2017-07-22] MEDS: FAMOTIDINE 20MG TABLET PO SCH ×2 (09:14→17:39)
[2017-07-22] MEDS: METOPROLOL TARTRATE 25MG TABLET PO SCH ×2 (09:14→20:57)
[2017-07-22] MEDS ORDERED: POTASSIUM CHLORIDE 20MEQ TABLET SR PO SCH (09:30)
[2017-07-22 20:00] VITALS: BP 142/64
[2017-07-22] MEDS: ATORVASTATIN CALCIUM 10MG TABLET PO SCH (20:56)
[2017-07-22] MEDS: POLYETHYLENE GLYCOL 3350 (17GM) 1 DOSE PACK PO SCH (20:57)
[2017-07-22 22:00] VITALS: BP 133/53
[2017-07-23] MEDS: CLONIDINE 0.1MG TABLET PO SCH ×3 (06:05→23:31)
[2017-07-23 07:15] LABS: BASOPHILS % 0.3 % (0.0-2.0); EOSINOPHILS % 1.7 % (0.0-5.0); HEMATOCRIT. 35.9 % (36.0-48.0); LYMPHOCYTES % 41.9 % (20.0-50.0); MEAN CORPUSCULAR HEMOGLOBIN 30.2 pg (28.0-32.0); MEAN CORPUSCULAR VOLUME 89.9 fL (81.0-99.0); MEAN PLATELET VOLUME 8.3 fl (7.4-10.4); MONOCYTES % 10.3 % (2.0-8.0); NEUTROPHILS % 45.8 % (40.0-76.0); PLATELET 260 x1000/uL (130-400); RED BLOOD CELL COUNT 3.99 mill/uL (4.2-5.4); RED CELL DISTRIBUTION WIDTH 14.8 % (11.6-14.6)
[2017-07-23 07:20] LABS: CARBON DIOXIDE 24 mEq/L (21-32); CHLORIDE 117 mEq/L (98-107)
[2017-07-23 08:00] VITALS: BP 122/69
[2017-07-23] MEDS: CLOPIDOGREL 75MG TABLET PO SCH (10:17)
[2017-07-23] MEDS: FAMOTIDINE 20MG TABLET PO SCH ×2 (10:18→17:15)
[2017-07-23] MEDS: ASPIRIN 81MG TABLET PO SCH (10:18)
[2017-07-23] MEDS: AMLODIPINE 5MG TABLET PO SCH ×2 (10:18→21:37)
[2017-07-23] MEDS: POTASSIUM CHLORIDE 10MEQ TABLET SR PO SCH (10:18)
[2017-07-23] MEDS: DOCUSATE SODIUM 100MG CAPSULE PO SCH ×2 (10:18→21:38)
[2017-07-23] MEDS: METOPROLOL TARTRATE 25MG TABLET PO SCH ×2 (10:19→21:00)
[2017-07-23] MEDS ORDERED: DEXT 5% WATER 250 ML IV ONE (11:00)
[2017-07-23 20:00] VITALS: BP 129/61
[2017-07-23] MEDS: POLYETHYLENE GLYCOL 3350 (17GM) 1 DOSE PACK PO SCH (21:37)
[2017-07-23] MEDS: ATORVASTATIN CALCIUM 10MG TABLET PO SCH (21:37)
[2017-07-24] MEDS: CLONIDINE 0.1MG TABLET PO SCH ×2 (06:42→15:01)
[2017-07-24 08:00] VITALS: BP 130/47
[2017-07-24] MEDS: METOPROLOL TARTRATE 25MG TABLET PO SCH (09:00)
[2017-07-24 09:05] LABS: BASOPHILS % 0.2 % (0.0-2.0); EOSINOPHILS % 1.5 % (0.0-5.0); HEMATOCRIT. 33.5 % (36.0-48.0); HEMOGLOBIN. 11.4 g/dL (12.0-16.0); LYMPHOCYTES % 30.2 % (20.0-50.0); MEAN CORPUSCULAR HEMOGLOBIN 30.4 pg (28.0-32.0); MEAN CORPUSCULAR VOLUME 89.2 fL (81.0-99.0); MEAN PLATELET VOLUME 8.2 fl (7.4-10.4); MONOCYTES % 6.9 % (2.0-8.0); NEUTROPHILS % 61.2 % (40.0-76.0); PLATELET 237 x1000/uL (130-400); RED BLOOD CELL COUNT 3.76 mill/uL (4.2-5.4); RED CELL DISTRIBUTION WIDTH 14.4 % (11.6-14.6)
[2017-07-24 09:27] LABS: CARBON DIOXIDE 27 mEq/L (21-32); CHLORIDE 112 mEq/L (98-107)
[2017-07-24] MEDS: CLOPIDOGREL 75MG TABLET PO SCH (10:08)
[2017-07-24] MEDS: DOCUSATE SODIUM 100MG CAPSULE PO SCH (10:09)
[2017-07-24] MEDS: FAMOTIDINE 20MG TABLET PO SCH (10:09)
[2017-07-24] MEDS: ASPIRIN 81MG TABLET PO SCH (10:09)
[2017-07-24] MEDS: POTASSIUM CHLORIDE 10MEQ TABLET SR PO SCH (10:09)
[2017-07-24] MEDS: AMLODIPINE 5MG TABLET PO SCH (10:09)
[2017-07-24 13:57] VITALS: BP 130/47
== END 2017-07-24 15:30 | DRG 64 ==
PROVIDERS: ADMIT Physical Medicine & Rehabilitation Spinal Cord Injury Medicine; ATTEND Family Medicine Adult Medicine
DX: I63.9 Cerebral infarction, unspecified (principal); G82.50 Quadriplegia, unspecified; K59.2 Neurogenic bowel, not elsewhere classified; E87.0 Hyperosmolality and hypernatremia; I27.2 Other secondary pulmonary hypertension; I50.30 Unspecified diastolic (congestive) heart failure; I11.0 Hypertensive heart disease with heart failure; I48.91 Unspecified atrial fibrillation; R47.01 Aphasia; I10 Essential (primary) hypertension; G81.91 Hemiplegia, unspecified affecting right dominant side; N39.0 Urinary tract infection, site not specified; I69.354 Hemiplegia and hemiparesis following cerebral infarction affecting left non-dominant side; N31.9 Neuromuscular dysfunction of bladder, unspecified; R13.10 Dysphagia, unspecified; J44.9 Chronic obstructive pulmonary disease, unspecified; D64.9 Anemia, unspecified; E11.9 Type 2 diabetes mellitus without complications; R47.1 Dysarthria and anarthria; R53.81 Other malaise; E87.6 Hypokalemia; Z87.11 Personal history of peptic ulcer disease; G47.33 Obstructive sleep apnea (adult) (pediatric); F31.9 Bipolar disorder, unspecified; E78.5 Hyperlipidemia, unspecified; E66.01 Morbid (severe) obesity due to excess calories; E61.1 Iron deficiency; B96.20 Unspecified Escherichia coli [E. coli] as the cause of diseases classified elsewhere; R32 Unspecified urinary incontinence; Z88.1 Allergy status to other antibiotic agents; Z88.0 Allergy status to penicillin; Z79.899 Other long term (current) drug therapy
CPT/HCPCS: 36415; 74230; 80048; 80053; 80061; 81001; 82270; 82306; 82607; 82728; 82746; 83036; 83540; 83550; 83735; 84100; 84134; 84443; 84630; 85025; 87077; 87086; 87186; 92523; 92610; 92611; 97110; 97112; 97163; 97167; 97530; 97535; 97542; A4565; A6261; C1893; C9113; J3490; J7070

== ENCOUNTER 2020-12-19 17:39 | Inpatient (IN) | payer MEDICARE, MEDICAID ==
[~2020-12-19] VITALS: Ht 162.6 cm; Wt 58.1 kg
[2020-12-19] MEDS ORDERED: DEXT 5%/0.45% NACL 1000ML 1,000 ML IV ONE (18:30)
[2020-12-19 19:27] LABS: BASOPHILS % 0.3 % (0.0-2.0); EOSINOPHILS % 11.8 % (0.0-5.0); HEMATOCRIT. 33.9 % (36.0-48.0); HEMOGLOBIN. 11.2 g/dL (12.0-16.0); MEAN CORPUSCULAR HEMOGLOBIN 29.3 pg (28.0-32.0); MEAN CORPUSCULAR VOLUME 88.6 fL (81.0-99.0); MEAN PLATELET VOLUME 9.5 fl (7.4-10.4); MONOCYTES % 5.4 % (2.0-8.0); NEUTROPHILS % 60.5 % (40.0-76.0); PLATELET 257 x1000/uL (130-400); RED BLOOD CELL COUNT 3.83 mill/uL (4.2-5.4); RED CELL DISTRIBUTION WIDTH 18.8 % (11.6-14.6)
[2020-12-19 19:34] LABS: CHLORIDE 132 mEq/L (98-107)
[2020-12-19 21:51] LABS: CHLORIDE 129 mEq/L (98-107)
[2020-12-19 21:53] LABS: INR 1.1; PROTHROMBIN TIME 11.2 sec (9.6-11.0)
[2020-12-19 23:40] LABS: CLARITY URINE CLEAR (CLEAR); COLOR URINE YELLOW (YELLOW); KETONES URINE NEGATIVE (NEGATIVE); LEUKOCYTE ESTERASE URINE 1+ (NEGATIVE); NITRITE URINE NEGATIVE (NEGATIVE); OCCULT BLOOD URINE NEGATIVE (NEGATIVE); PH URINE 6.5 (4.5-8.0); PROTEIN URINE TRACE (NEGATIVE); SPECIFIC GRAVITY URINE 1.018 (1.005-1.030)
[2020-12-19 23:44] LABS: CHLORIDE URINE RANDOM 19 mEq/L; SODIUM URINE RANDOM 18 mEq/L
[2020-12-20] MEDS ORDERED: ACETAMINOPHEN 325MG TABLET PO PRN (10:15)
[2020-12-20] MEDS ORDERED: DEXTROSE 5% WATER 1,000 ML IV ONE (10:15)
[2020-12-20] MEDS ORDERED: ONDANSETRON HCL 4MG/2ML INJ IV PRN (10:15)
[2020-12-20] MEDS ORDERED: POTASSIUM CHLORIDE INJ 40 MEQ in DEXT 5% WATER 250 ML IV NR (10:15)
[2020-12-20] MEDS: ENOXAPARIN 60MG/0.6ML SYR SUBCUT SCH ×2 (15:43→21:00)
[2020-12-20 15:50] LABS: HEMATOCRIT. 31.9 % (36.0-48.0); HEMOGLOBIN. 10.3 g/dL (12.0-16.0); MEAN CORPUSCULAR HEMOGLOBIN 29.2 pg (28.0-32.0); MEAN CORPUSCULAR VOLUME 90.4 fL (81.0-99.0); RED BLOOD CELL COUNT 3.53 mill/uL (4.2-5.4)
[2020-12-20 15:51] LABS: BASOPHILS % 0.1 % (0.0-2.0); EOSINOPHILS % 9.5 % (0.0-5.0); LYMPHOCYTES % 19.5 % (20.0-50.0); NEUTROPHILS % 65.9 % (40.0-76.0); PLATELET 224 x1000/uL (130-400); RED CELL DISTRIBUTION WIDTH 18.9 % (11.6-14.6)
[2020-12-20 16:00] LABS: CHLORIDE 129 mEq/L (98-107)
[2020-12-20] MEDS: DILTIAZEM HCL 30MG TABLET PO SCH ×2 (17:26→22:00)
[2020-12-20] MEDS ORDERED: TRAZODONE HCL 50MG TABLET PO PRN (21:00)
[2020-12-20] MEDS ORDERED: HEPARIN 5000 UNITS/ML VIAL SUBCUT SCH (21:00)
[2020-12-21 00:27] LABS: CHLORIDE 127 mEq/L (98-107)
[2020-12-21 00:50] LABS: CHLORIDE 126 mEq/L (98-107)
[2020-12-21 03:00] VITALS: BP 133/69
[2020-12-21 05:18] LABS: CHLORIDE 125 mEq/L (98-107)
[2020-12-21] MEDS: DILTIAZEM HCL 30MG TABLET PO SCH (06:00)
[2020-12-21 06:34] LABS: BASOPHILS % 0.2 % (0.0-2.0); HEMATOCRIT. 34.3 % (36.0-48.0); HEMOGLOBIN. 11.1 g/dL (12.0-16.0); LYMPHOCYTES % 19.8 % (20.0-50.0); MEAN CORPUSCULAR HEMOGLOBIN 29.1 pg (28.0-32.0); MEAN CORPUSCULAR VOLUME 90.1 fL (81.0-99.0); MEAN PLATELET VOLUME 9.9 fl (7.4-10.4); MONOCYTES % 4.2 % (2.0-8.0); NEUTROPHILS % 65.8 % (40.0-76.0); PLATELET 235 x1000/uL (130-400); RED BLOOD CELL COUNT 3.81 mill/uL (4.2-5.4); RED CELL DISTRIBUTION WIDTH 18.6 % (11.6-14.6)
[2020-12-21 08:00] VITALS: BP 112/56
[2020-12-21 09:07] LABS: CHLORIDE 127 mEq/L (98-107)
[2020-12-21] MEDS: ENOXAPARIN 60MG/0.6ML SYR SUBCUT SCH ×2 (10:12→21:17)
[2020-12-21] MEDS: PANTOPRAZOLE SODIUM 40 MG/VIAL IV SCH (10:13)
[2020-12-21] MEDS: DEXTROSE 5% WATER 1,000 ML IV SCH (12:32)
[2020-12-21 16:00] VITALS: BP 124/60
[2020-12-21 20:00] VITALS: BP 155/66
[2020-12-21] MEDS: DILTIAZEM HCL 30MG TABLET NG SCH (21:18)
[2020-12-22] VITALS: BP 108/65
[2020-12-22] MEDS: DEXTROSE 5% WATER 1,000 ML IV SCH ×2 (03:55→23:45)
[2020-12-22 04:00] VITALS: BP 128/73
[2020-12-22] MEDS: DILTIAZEM HCL 30MG TABLET NG SCH ×3 (06:12→21:05)
[2020-12-22 07:03] LABS: CHLORIDE 126 mEq/L (98-107)
[2020-12-22 07:18] LABS: BASOPHILS % 0.2 % (0.0-2.0); EOSINOPHILS % 5.1 % (0.0-5.0); HEMATOCRIT. 27.2 % (36.0-48.0); HEMOGLOBIN. 9.2 g/dL (12.0-16.0); LYMPHOCYTES % 15.8 % (20.0-50.0); MEAN CORPUSCULAR HEMOGLOBIN 30.2 pg (28.0-32.0); MEAN CORPUSCULAR VOLUME 88.9 fL (81.0-99.0); MEAN PLATELET VOLUME 9.2 fl (7.4-10.4); NEUTROPHILS % 71.9 % (40.0-76.0); PLATELET 208 x1000/uL (130-400); RED BLOOD CELL COUNT 3.07 mill/uL (4.2-5.4); RED CELL DISTRIBUTION WIDTH 18.7 % (11.6-14.6)
[2020-12-22 08:00] VITALS: BP 119/64
[2020-12-22] MEDS: PANTOPRAZOLE SODIUM 40 MG/VIAL IV SCH (08:21)
[2020-12-22] MEDS: ENOXAPARIN 60MG/0.6ML SYR SUBCUT SCH ×2 (08:21→21:05)
[2020-12-22] MEDS ORDERED: LIDOCAINE HCL 1% 20ML VIAL (Pyxis) INJ ONE (09:51)
[2020-12-22] MEDS ORDERED: POTASSIUM CHLORIDE INJ 40 MEQ in DEXT 5% WATER 250 ML IV SCH (11:00)
[2020-12-22 12:00] VITALS: BP 108/70
[2020-12-22 16:00] VITALS: BP 132/73
[2020-12-22] MEDS ORDERED: CEFTRIAXONE 1,000 MG in DEXTROSE 5% WATER 50 ML IV SCH (17:45)
[2020-12-22] MEDS ORDERED: LEVOFLOXACIN 500MG PREMIX 100 ML IV SCH (18:30)
[2020-12-22 19:56] LABS: CLARITY URINE CLOUDY (CLEAR); COLOR URINE YELLOW (YELLOW); KETONES URINE 1+ (NEGATIVE); LEUKOCYTE ESTERASE URINE 3+ (NEGATIVE); NITRITE URINE POSITIVE (NEGATIVE); OCCULT BLOOD URINE 2+ (NEGATIVE); PROTEIN URINE 1+ (NEGATIVE); SPECIFIC GRAVITY URINE 1.015 (1.005-1.030)
[2020-12-22 20:00] VITALS: BP 137/89
[2020-12-22] MEDS ORDERED: VANCOMYCIN 750 MG PREMIX 150 ML IV SCH (20:00)
[2020-12-23] MEDS: DILTIAZEM HCL 30MG TABLET NG SCH (06:04)
[2020-12-23 07:54] LABS: BASOPHILS % 0.2 % (0.0-2.0); EOSINOPHILS % 4.9 % (0.0-5.0); HEMATOCRIT. 26.6 % (36.0-48.0); HEMOGLOBIN. 8.6 g/dL (12.0-16.0); LYMPHOCYTES % 16.4 % (20.0-50.0); MEAN CORPUSCULAR VOLUME 89.9 fL (81.0-99.0); MEAN PLATELET VOLUME 9.4 fl (7.4-10.4); MONOCYTES % 6.2 % (2.0-8.0); NEUTROPHILS % 72.3 % (40.0-76.0); PLATELET 199 x1000/uL (130-400); RED BLOOD CELL COUNT 2.96 mill/uL (4.2-5.4); RED CELL DISTRIBUTION WIDTH 18.9 % (11.6-14.6)
[2020-12-23 08:00] VITALS: BP 125/83
[2020-12-23 08:20] LABS: CHLORIDE 127 mEq/L (98-107)
[2020-12-23] MEDS: PANTOPRAZOLE SODIUM 40 MG/VIAL IV SCH (08:42)
[2020-12-23] MEDS: ENOXAPARIN 60MG/0.6ML SYR SUBCUT SCH (08:42)
[2020-12-23] MEDS: VANCOMYCIN 500 MG PREMIX 100 ML IV SCH ×2 (08:42→20:27)
[2020-12-23 12:00] VITALS: BP 139/65
[2020-12-23 16:00] VITALS: BP 138/61
[2020-12-23] MEDS: DEXTROSE 5% WATER 1,000 ML IV SCH (18:10)
[2020-12-23] MEDS: LEVOFLOXACIN 250MG PREMIX 50 ML IV SCH (18:11)
[2020-12-23 20:00] VITALS: BP 145/79
[2020-12-23] MEDS: METOPROLOL TARTRATE 25MG TABLET PO SCH (20:28)
[2020-12-24] VITALS: BP 104/66
[2020-12-24 04:00] VITALS: BP 151/87
[2020-12-24 06:48] LABS: BASOPHILS % 0.3 % (0.0-2.0); EOSINOPHILS % 14.4 % (0.0-5.0); HEMATOCRIT. 30.1 % (36.0-48.0); HEMOGLOBIN. 10.1 g/dL (12.0-16.0); LYMPHOCYTES % 20.1 % (20.0-50.0); MEAN CORPUSCULAR HEMOGLOBIN 29.4 pg (28.0-32.0); MEAN CORPUSCULAR VOLUME 88.3 fL (81.0-99.0); NEUTROPHILS % 59.2 % (40.0-76.0); PLATELET 206 x1000/uL (130-400); RED BLOOD CELL COUNT 3.41 mill/uL (4.2-5.4); RED CELL DISTRIBUTION WIDTH 18.5 % (11.6-14.6)
[2020-12-24] MEDS: DEXTROSE 5% WATER 1,000 ML IV SCH ×2 (07:05→18:48)
[2020-12-24 08:00] VITALS: BP 132/74
[2020-12-24 08:07] LABS: CHLORIDE 120 mEq/L (98-107)
[2020-12-24] MEDS: METOPROLOL TARTRATE 25MG TABLET PO SCH ×2 (08:50→20:19)
[2020-12-24] MEDS: PANTOPRAZOLE SODIUM 40 MG/VIAL IV SCH (09:44)
[2020-12-24] MEDS: VANCOMYCIN 500 MG PREMIX 100 ML IV SCH (09:44)
[2020-12-24] MEDS: ENOXAPARIN 40MG/0.4ML SYR SUBCUT SCH (09:45)
[2020-12-24 12:00] VITALS: BP 156/88
[2020-12-24 16:00] VITALS: BP 109/67
[2020-12-24] MEDS: LEVOFLOXACIN 250MG PREMIX 50 ML IV SCH (18:38)
[2020-12-24 20:00] VITALS: BP 121/70
[2020-12-24] MEDS: VANCOMYCIN 750 MG PREMIX 150 ML IV SCH (23:19)
[2020-12-25] VITALS: BP 125/72
[2020-12-25 04:00] VITALS: BP 110/71
[2020-12-25 08:03] LABS: HEMATOCRIT. 28.4 % (36.0-48.0); HEMOGLOBIN. 9.6 g/dL (12.0-16.0); MEAN CORPUSCULAR HEMOGLOBIN 29.6 pg (28.0-32.0); MEAN CORPUSCULAR VOLUME 88.2 fL (81.0-99.0); MEAN PLATELET VOLUME 8.9 fl (7.4-10.4); PLATELET 214 x1000/uL (130-400); RED BLOOD CELL COUNT 3.23 mill/uL (4.2-5.4); RED CELL DISTRIBUTION WIDTH 17.8 % (11.6-14.6)
[2020-12-25 08:05] LABS: CHLORIDE 115 mEq/L (98-107)
[2020-12-25] MEDS: METOPROLOL TARTRATE 25MG TABLET PO SCH ×2 (09:00→21:00)
[2020-12-25] MEDS: PANTOPRAZOLE SODIUM 40 MG/VIAL IV SCH (09:48)
[2020-12-25] MEDS: ENOXAPARIN 40MG/0.4ML SYR SUBCUT SCH (09:50)
[2020-12-25] MEDS: DEXTROSE 5% WATER 1,000 ML IV SCH (09:50)
[2020-12-25] MEDS ORDERED: POTASSIUM CHLORIDE INJ 40 MEQ in DEXT 5% WATER 250 ML IV SCH (11:00)
[2020-12-25 16:00] VITALS: BP 127/61
[2020-12-25] MEDS: VANCOMYCIN 750 MG PREMIX 150 ML IV SCH (18:17)
[2020-12-25] MEDS: LEVOFLOXACIN 250MG PREMIX 50 ML IV SCH (19:00)
[2020-12-25 19:17] LABS: PLATELET ESTIMATE NORMAL
[2020-12-25 20:24] VITALS: BP 174/116
[2020-12-25 23:47] VITALS: BP 132/81
[2020-12-26 05:38] VITALS: BP 128/85
[2020-12-26 07:24] LABS: HEMATOCRIT. 30.9 % (36.0-48.0); HEMOGLOBIN. 10.4 g/dL (12.0-16.0); MEAN CORPUSCULAR HEMOGLOBIN 29.9 pg (28.0-32.0); MEAN CORPUSCULAR VOLUME 88.6 fL (81.0-99.0); RED BLOOD CELL COUNT 3.49 mill/uL (4.2-5.4); RED CELL DISTRIBUTION WIDTH 17.7 % (11.6-14.6)
[2020-12-26 08:00] VITALS: BP 132/69
[2020-12-26] MEDS: PANTOPRAZOLE SODIUM 40 MG/VIAL IV SCH (08:36)
[2020-12-26] MEDS: ENOXAPARIN 40MG/0.4ML SYR SUBCUT SCH (08:36)
[2020-12-26] MEDS: METOPROLOL TARTRATE 25MG TABLET PO SCH ×2 (08:36→21:09)
[2020-12-26 08:38] LABS: CHLORIDE 114 mEq/L (98-107)
[2020-12-26 09:36] LABS: PLATELET 186 x1000/uL (130-400)
[2020-12-26 09:40] LABS: PLATELET ESTIMATE NORMAL
[2020-12-26] MEDS: DEXTROSE 5% WATER 1,000 ML IV SCH (09:50)
[2020-12-26] MEDS: VANCOMYCIN 750 MG PREMIX 150 ML IV SCH (11:43)
[2020-12-26 12:00] VITALS: BP 151/74
[2020-12-26 16:00] VITALS: BP 110/78
[2020-12-26] MEDS: LEVOFLOXACIN 250MG PREMIX 50 ML IV SCH (17:32)
[2020-12-26 20:00] VITALS: BP 133/59
[2020-12-27] VITALS: BP 108/52
[2020-12-27 04:00] VITALS: BP 123/58
[2020-12-27] MEDS: VANCOMYCIN 750 MG PREMIX 150 ML IV SCH (05:54)
[2020-12-27 08:00] VITALS: BP 123/57
[2020-12-27] MEDS: DEXTROSE 5% WATER 1,000 ML IV SCH (08:51)
[2020-12-27] MEDS: PANTOPRAZOLE SODIUM 40 MG/VIAL IV SCH (08:51)
[2020-12-27] MEDS: ENOXAPARIN 40MG/0.4ML SYR SUBCUT SCH (08:52)
[2020-12-27] MEDS: METOPROLOL TARTRATE 25MG TABLET PO SCH (08:52)
[2020-12-27 11:01] VITALS: BP 123/57
[2020-12-27 12:00] VITALS: BP 111/47
[2020-12-27 16:00] VITALS: BP 144/60
== END 2020-12-27 18:37 | disposition hospice, inpatient (51) | DRG 871 ==
LOC: ER 17:39 → MICUSO 12-20 22:35 → 5WST 12-21 01:04
PROVIDERS: ADMIT Family Medicine Adult Medicine; ATTEND Family Medicine Adult Medicine
PROC: 02HV33Z Insertion of Infusion Device into Superior Vena Cava, Percutaneous Approach (ICD-10-PCS; principal; 2020-12-22)
PROC: B5181ZA Fluoroscopy of Superior Vena Cava using Low Osmolar Contrast, Guidance (ICD-10-PCS; 2020-12-22)
PROC: B548ZZA Ultrasonography of Superior Vena Cava, Guidance (ICD-10-PCS; 2020-12-22)
DX: A41.01 Sepsis due to Methicillin susceptible Staphylococcus aureus (principal); L89.154 Pressure ulcer of sacral region, stage 4; E43 Unspecified severe protein-calorie malnutrition; R53.2 Functional quadriplegia; E87.0 Hyperosmolality and hypernatremia; G93.40 Encephalopathy, unspecified; N39.0 Urinary tract infection, site not specified; I69.954 Hemiplegia and hemiparesis following unspecified cerebrovascular disease affecting left non-dominant side; D64.9 Anemia, unspecified; E11.9 Type 2 diabetes mellitus without complications; E78.00 Pure hypercholesterolemia, unspecified; E78.5 Hyperlipidemia, unspecified; E87.6 Hypokalemia; I10 Essential (primary) hypertension; I48.91 Unspecified atrial fibrillation; R13.12 Dysphagia, oropharyngeal phase; R21 Rash and other nonspecific skin eruption; Z20.822 Contact with and (suspected) exposure to COVID-19; Z51.5 Encounter for palliative care; Z66 Do not resuscitate; E87.8 Other disorders of electrolyte and fluid balance, not elsewhere classified; R00.0 Tachycardia, unspecified; Z88.0 Allergy status to penicillin; Z79.899 Other long term (current) drug therapy; Z78.1 Physical restraint status; Z90.710 Acquired absence of both cervix and uterus; R62.7 Adult failure to thrive; Z68.22 Body mass index [BMI] 22.0-22.9, adult
CPT/HCPCS: 36415; 36573; 71045; 80048; 80053; 80061; 80202; 81003; 82436; 83735; 83930; 83935; 84134; 84145; 84300; 85025; 87077; 87186; 87426; 92610; 93005; 93306; 99291; C1725; C1893; C9113; J1650; J1956; J3370; J3480; J3490; J7060; J7070; A4315